=== PATIENT | male | born 1950 | race Caucasian/White ===

== ENCOUNTER → 2016-12-30 | Day surgery (SDC) | payer OTHER ==
[2016-12-28 13:47] VITALS: BMI 37.3
[~2016-12-30] MED LIST: IV FLUID CONTINUATION 450 ML IV ONE; LIDOCAINE 2% INJ 20 MG/ML SQ ONE; SODIUM CHLORIDE 0.9% 1,000 ML IV SCH; ceFAZolin 2 GM in SODIUM CHLORIDE 0.9% 100 ML IVPB ONE; fentaNYL (PF) 50 MCG/ML 2 ML AMP IV ONE
[2016-12-30 09:50] VITALS: PULSE 58; RESP 16; TEMP 98.3
[2016-12-30 10:10] LABS: Glucose,Whole Blood 126 mg/dL (75-99)
--- NOTE | 2016-12-30 14:33 | P.PCN ---
Preoperative Diagnosis: Twelve-lead ECG report Sinus because of normal RI narrow QRS T-wave inversions V3 to V6 QT interval is normal Tilt table test report Baseline blood pressure 134/76. His mercury Baseline 175 beats a minute patient was tilted upright at an angle of 70 per protocol was no significant changes heart her blood pressure no evidence for neurocardiogenic syncope Impression Normal heart rate and blood pressure response to upright tilting Condition: stable Disposition: same day
--- NOTE | 2016-12-30 14:59 | P.PCN ---
Preoperative Diagnosis: Patient underwent EP procedure under conscious sedation/moderate sedation, monitoring of the level of consciousness and physiologic parameters including but not limited to vital signs and oxygenation. Patient tolerated the procedure well without any acute complications. Start time: 1440 Stop time: 1452
--- NOTE | 2016-12-30 15:04 | P.PCN ---
Preoperative Diagnosis: Loop monitor implant Primary physicians: Dr. Darrell [facility] Field Machinist: Dr. Acosta Indication: A. fib Patient was brought to the EP lab in a fasting state. Written informed consent was obtained prior to the procedure. The left pectoral area was prepped and draped per protocol. Intravenous antibiotic was administered preoperatively. A subcutaneous Loop monitor was implanted successfully and the wound was closed per protocol. The device was programmed to detect significant reinier- arrhythmic and tachy-arrhythmic events, per protocol. Device and programming details: A. fib protocol programmed Disposition: same day
[2016-12-30 15:44] VITALS: BP 165/93
== END | disposition home or self-care (01) ==
LOC: CATHEP 08:47
PROVIDERS: ATTEND Internal Medicine Clinical Cardiac Electrophysiology
DX: I48.0 Paroxysmal atrial fibrillation (principal); I48.92 Unspecified atrial flutter; N18.3 Chronic kidney disease, stage 3 (moderate); E66.3 Overweight; E78.5 Hyperlipidemia, unspecified; I12.9 Hypertensive chronic kidney disease with stage 1 through stage 4 chronic kidney disease, or unspecified chronic kidney disease; G47.33 Obstructive sleep apnea (adult) (pediatric); E11.22 Type 2 diabetes mellitus with diabetic chronic kidney disease; I42.2 Other hypertrophic cardiomyopathy; I73.9 Peripheral vascular disease, unspecified; Z79.899 Other long term (current) drug therapy; Z79.4 Long term (current) use of insulin; Z79.01 Long term (current) use of anticoagulants
CPT/HCPCS: 33282; 93660; 99152; 93005; C1764; J2001; J0690; J3010

== ENCOUNTER 2017-08-08 13:00 | Day surgery (SDC) | payer MEDICARE, OTHER ==
[2017-08-08 07:20] LABS: Basophils # (A) 0.1 k/uL (0-0.2); Basophils % (A) 1 %; Eosinophils # (A) 0.3 k/uL (0-0.7); Eosinophils % (A) 3 %; HCT 43.7 % (39.0-53.0); HGB 15.6 gm/dL (13.0-17.5); Lymphocytes # (A) 4.2 k/uL (1.0-4.8); Lymphocytes % (A) 38 %; MCH 29.7 pg (25.0-35.0); MCHC 35.7 g/dL (31.0-37.0); MCV 83.2 fL (80.0-100.0); Mean Platelet Volume 9.8; Monocytes # (A) 0.6 k/uL (0-1.0); Monocytes % (A) 5 %; Neutrophils # (A) 5.6 k/uL (1.3-7.7); Neutrophils % (A) 50 %; Platelet Count 220 k/uL (150-450); RBC 5.25 m/uL (4.30-5.90); RDW 12.8 % (11.5-15.5)
[2017-08-08 09:32] LABS: Calcium 8.5 mg/dL (8.4-10.2); Potassium 3.8 mmol/L (3.5-5.1)
[2017-08-08 09:59] LABS: Glucose,Whole Blood 99 mg/dL (75-99)
[~2017-08-08 13:00] MED LIST changes: +GLYCOPYRROLATE 0.2 MG/ML 2 ML VIAL ONE; +HEPARIN SODIUM 1,000 UN/ML (10ML VL) IV ONE; +HEPARIN SODIUM 1,000 UN/ML (10ML VL) ONE; +HEPARIN SODIUM,PORCINE 10,000 UNIT/ML 1 ML VIAL ONE; +HEPARIN SODIUM,PORCINE/D5W PMX 25,000 UNIT in DEXTROSE/WATER 1 500ML.BAG IV ONE; +ISOPROTERENOL 250 MCG/1.25 ML SYR IV ONE; -IV FLUID CONTINUATION 450 ML IV ONE; +LIDOCAINE 1% INJ 10MG/ML (20 ML MDV) ONE; +MIDAZOLAM 2 MG/2 ML VIAL IV PRN; +MIDAZOLAM 2 MG/2 ML VIAL ONE; +NEOSTIGMINE 1 MG/ML 10 ML VIAL ONE; +PHENYLEPHRINE-0.9% NACL SYG 1 MG/10 ML SYRINGE ONE; +PROPOFOL 10 MG/ML 20 ML VIAL IV ONE; +PROTAMINE SULFATE 10 MG/ML 5 ML VIAL IV ONE; +ROCURONIUM BROMIDE 10 MG/ML 10 ML VIAL IV ONE; +SODIUM CHLORIDE 0.9% 1,000 ML IV ONE; +SUCCINYLCHOLINE CHLORIDE 100 MG/5 ML SYR IV ONE; -ceFAZolin 2 GM in SODIUM CHLORIDE 0.9% 100 ML IVPB ONE; +ePHEDrine SULFATE/0.9% NACL/PF 50 MG/5 ML SYRINGE IV ONE; -fentaNYL (PF) 50 MCG/ML 2 ML AMP IV ONE; +fentaNYL (PF) 50 MCG/ML 2 ML AMP IV PRN; +fentaNYL (PF) 50 MCG/ML 2 ML AMP ONE
[2017-08-08] MEDS ORDERED: HEPARIN SODIUM (1,000 UNIT/ML) 1,000 UNIT in SODIUM CHLORIDE 0.9% 1,000 ML IRRIGATION ONE (13:08)
[2017-08-08] MEDS ORDERED: IOPAMIDOL-370 100ML BTL INJ ONE (13:10)
[2017-08-08 14:02] LABS: Glucose,Whole Blood 98 mg/dL (75-99)
--- NOTE | 2017-08-08 14:24 | P.PCN ---
Preoperative Diagnosis: Diagnosis Paroxysmal symptomatic atrial fibrillation with RVR Chronic kidney disease Left ventricular hypertrophy Procedures performed (PVI - CRYO Ablation) Invasive hemodynamic monitoring while general anesthesia, right femoral arterial line for monitoring and sampling Comprehensive diagnostic EP study with attempted arrhythmia induction CS pacing and recording Drug infusion 3-D mapping of the left atrium Intracardiac echocardiography Pulmonary vein isolation with transseptal and comprehensive EPS, [id number] Procedure details Patient was brought to the EP lab in a fasting state. Written informed consent was obtained prior to the procedure. Procedure performed under general anesthesia After initial muscle relaxant use, muscle relaxants were not given thereafter in order to assess phrenic nerve during procedure Patient prepped and draped as per protocol Full cryo-set up with standard preparation of the cryoablation tools done Femoral Venous access obtained on the right and left groins Sheaths placed Diagnostic catheters for the high right atrium, phrenic nerve stimulation and pacing, His bundle, RV and coronary sinus placed Intracardiac echo catheter placed Long sheath placed in the right atrium Left and right transseptal catheterization performed under intracardiac echo guidance Intravenous heparin with aCT above 300 Later, catheter positioning and balloon positioning under intracardiac echo Baseline measurements Sinus cycle length 1318, VT interval 189, QRS 91 ms and QT 558 ms HV interval 58 ms Comprehensive diagnostic EP study with drug infusion Atrial pacing performed from the high right atrium and the coronary sinus Sinus node recovery times at 600 540 ms were 1578, 864 and 1269 ms. Corresponding corrected sinus node recovery times suggested sinus node entrance block AV node Wenckebach block 300 ms antegrade slow pathway conduction at 320 ms At the start of study and Isuprel was used spontaneous atrial fibrillation was induced on Isuprel without any pacing maneuvers. After about 30 minutes or so he spontaneously converted to sinus rhythm At the end of the procedure high dose Isuprel was once again used and this time atrial fibrillation could not be induced Transseptal catheterization performed RA pressure 13/1/7 LA pressure 29/2/14 Transseptal catheterization performed with standard sheath. The cryoablation sheath was then placed with an over the wire exchange without any acute complications. All 4 pulmonary veins were isolated in the following sequence: Left superior followed by left inferior followed by right superior followed by right inferior The cryo-ablation balloon was placed at the os of each vein 1.5 mL of IV dye was injected to confirm an occluded vein Goal during cryoablation was to achieve -30C in the first 30 seconds. If not the balloon was repositioned to obtain this result After completion of Cryoblation with durations from 180-240 seconds, entrance block was confirmed with the Attain circular catheter in a roving fashion around the antrum of the pulmonary veins Phrenic nerve pacing was performed from the SVC, right innominate vein area and diaphragm voltage was monitored as well as manually Parameter goals for each cryo freeze -30C by 30 seconds -40C by 60 seconds Mediated between minus 40-55 Thaw time greater than 10 seconds Balloon visualized by intracardiac echo to ensure that the proximal one third was within the left atrium/antrum Left superior pulmonary vein, very posteriorly oriented Single for minute cryoablation lesion, successful isolation Voltage mapping/3-D mapping at the end of the procedure showed complete isolation Left inferior pulmonary vein, very posteriorly oriented 2 cryoablation lesions, 3 minutes as well as 2 minutes Complete isolation demonstrated by voltage mapping/3-D mapping Right superior pulmonary vein, during phrenic nerve pacing 2 cryo lesions 3 minutes followed by 2 minutes RF application anterior mandi at the edge of the cryoablation, needed for complete isolation voltage map/3-D mapping demonstrated complete isolation Right inferior pulmonary vein, during phrenic nerve pacing 2 cryo lesions, 173 seconds followed by 04/18, and treat isolation demonstrated by voltage mapping/3-D mapping At the end of the procedure voltage map of the left atrium and the pulmonary veins demonstrated complete isolation except at 2 sites along the right superior vein, at the border zone of the cryo lesions. RF applications delivered at these sites for complete isolation Phrenic nerve stimulation was performed to confirm diaphragmatic stimulation the end of the procedure Cine fluoroscopy was performed at the very end of the procedure to confirm movement of both diaphragms with inspiration and expiration At the end of the procedure the patient was extubated Heparin was reversed Venous sheaths were removed and hemostasis assured Result During initial diagnostic EP study atrial fibrillation was very inducible with Isuprel infusion, without any pacing maneuvers Successful pulmonary vein isolation using cryo-ablation Complete entrance block in all 4 veins confirmed Voltage map/3-D mapping performed at the end of the procedure At the end of the procedure, high dose Isuprel did not result in induction of atrial fibrillation No evidence for phrenic nerve injury Left-sided esophagus that was deflected of a from the cryo balloon 30-35 mL of IV dye Plan Reduce metoprolol to 50 g twice daily Watch renal function and if GFR is significantly reduced and one may have to switch to Coumadin instead of xarelto Anesthesia: GETA Condition: stable Disposition: observation
[2017-08-08] MEDS ORDERED: ACETAMINOPHEN TAB 325 MG TAB PO PRN (15:04)
[2017-08-08] MEDS ORDERED: NALOXONE 0.4 MG/ML 1 ML VIAL IV PRN (15:04)
[2017-08-08] MEDS ORDERED: ALPRAZolam 0.5 MG TAB PO PRN (15:06)
[2017-08-08] MEDS ORDERED: EZETIMIBE 10 MG TAB PO PRN (15:06)
[2017-08-08] MEDS: SODIUM CHLORIDE 0.9% 1,000 ML IV SCH (15:15)
[2017-08-08 15:17] VITALS: BMI 38.5
[2017-08-08] MEDS: LACTATED RINGERS 1,000 ML IV SCH (15:31)
[2017-08-08] MEDS ORDERED: ERGOCALCIFEROL 50,000 UNIT CAP PO SCH (16:00)
[2017-08-08] MEDS ORDERED: ACETAMINOPHEN IV (For NPO) 1,000 MG in EMPTY BAG 1 BAG IVPB ONE (16:00)
[2017-08-08] MEDS: METOPROLOL TARTRATE 50 MG TAB PO SCH ×3 (16:22→23:09)
[2017-08-08] MEDS: GABAPENTIN 300 MG CAP PO SCH (16:22)
[2017-08-08] MEDS: HYDROcodone/APAP 5-325MG 1 EACH TAB PO PRN ×2 (16:27→23:17)
--- NOTE | 2017-08-08 16:44 | P.HPIM ---
History of Present Illness H&P Date: 08/08/17 Chief Complaint: Paroxysmal atrial fibrillation 67-year-old male with history of paroxysmal atrial fibrillation presented to the observation unit after he had ablation procedure for his chronic paroxysmal atrial fibrillation. Patient stated that over the last several months he has been having symptoms of increasing dizziness, shortness of breath, palpitations , difficulty with balance, nausea and occasional chest pain. No vomiting. He is currently a little weak and is feeling like there is something stuck in her throat and he is trying to get up. No recent illness, No fevers or chills. Currently patient is in sinus rhythm. No chest pain or shortness of breath. Review of Systems 12 point review of system performed, negative except HPI Past Medical History Past Medical History: Atrial Fibrillation, Diabetes Mellitus, GERD/Reflux, Musculoskeletal Disorder, Osteoarthritis (OA), Renal Disease, Sleep Apnea/CPAP/ BIPAP, Thyroid Disorder Additional Past Medical History / Comment(s): UNABLE TO USE CPAP. HYPOTHYROID, NOT TAKING RX. CHRONIC RENAL DISEASE STAGE 3, SEE H&P PER ARNAUD , HEPATITIS B AT AGE 22 History of Any Multi-Drug Resistant Organisms: None Reported Past Surgical History: Cholecystectomy, Heart Catheterization Additional Past Surgical History / Comment(s): LOOP RECORDER -12/2016 Past Anesthesia/Blood Transfusion Reactions: No Reported Reaction Past Psychological History: Anxiety, Depression Additional Psychological History / Comment(s): TAKES RX, DOESN'T WANT TO LIST RX INFO Smoking Status: Never smoker Past Alcohol Use History: Rare Past Drug Use History: Marijuana Additional Drug Use History / Comment(s): HAS NOT USED FOR AT LEAST A YEAR - Past Family History Father Family Medical History: Cancer Medications and Allergies Home Medications Medication Instructions Recorded Confirmed Type Calcitriol [Rocaltrol] 0.25 mcg PO DAILY 12/28/16 08/08/17 History Enalapril [Vasotec] 5 mg PO DAILY 12/28/16 08/05/17 History Ergocalciferol [Vitamin D2] 50,000 unit PO Q7D 12/28/16 08/05/17 History Ezetimibe [Zetia] 10 mg PO DAILY PRN 12/28/16 08/05/17 History Gabapentin [Neurontin] 300 mg PO BID 12/28/16 08/08/17 History Insulin Aspart [NovoLOG] 25 units SQ AC-TID 12/28/16 08/08/17 History Insulin Detemir [Levemir] 50 unit SQ BID 12/28/16 08/08/17 History Metoprolol Tartrate [Lopressor] 50 mg PO TID 12/28/16 08/08/17 History RX: Fenofibrate 54 mg PO PC-SUPPER 12/28/16 08/08/17 History Rivaroxaban [Xarelto] 15 mg PO HS 12/28/16 08/08/17 History Turmeric Root Extract [Turmeric] 1,000 mg PO DAILY 12/28/16 08/08/17 History Verapamil HCl [Verapamil ER] 180 mg PO PC-SUPPER 12/28/16 08/08/17 History ALPRAZolam [Xanax] 0.5 mg PO BID PRN 08/03/17 08/08/17 History Allergies Allergy/AdvReac Type Severity Reaction Status Date / Time No Known Allergies Allergy Verified 08/03/17 08:57 Physical Exam Vitals: Vital Signs Temp Pulse Pulse Pulse Resp BP BP 08/08/17 14:40 97.4 F L 68 18 146/72 08/08/17 14:24 65 16 131/69 08/08/17 14:09 67 16 130/75 08/08/17 13:54 68 16 138/84 08/08/17 13:39 97.5 F L 70 16 132/90 08/08/17 07:28 98.3 F 58 L 16 160/91 08/08/17 07:21 98.3 F 58 L 16 160/91 Pulse Ox 08/08/17 14:40 95 08/08/17 14:24 98 08/08/17 14:09 97 08/08/17 13:54 95 08/08/17 13:39 98 08/08/17 07:28 97 08/08/17 07:21 97 Intake and Output 08/08/17 08/08/17 08/08/17 06:59 14:59 22:59 Intake Total 2028 Output Total 290 Balance 1738 Intake: IV 2028 Output: Urine 290 Other: Weight 125.5 kg 125.5 kg Constitutional: No acute distress, conversant, pleasant Eyes:Anicteric sclerae, moist conjunctiva, no lid-lag, PERRLA, ENMT: Oropharynx clear, no erythema, exudates Neck: Supple, FROM, no masses, or JVD, No carotid bruits, No thyromegaly Lungs: Clear to auscultation, Clear to percussion, Normal respiratory effort, no accessory muscle use Cardiovascular: Heart regular in rate and rhythm, No murmurs, gallops, or rubs, No peripheral edema Abdominal: Soft, Nontender, no guarding, rebound or rigidity, Normoactive bowel sounds, No hepatomegaly, No splenomegaly, No palpable mass Skin: Normal temperature, tone, texture, turgor, no induration, No subcutaneous nodules, No rash, lesions, No ulcers Extremities: No digital cyanosis, No clubbing, Pedal pulses intact and symmetrical, Radial pulses intact and symmetrical, No calf tenderness Psychiatric: Alert and oriented to person, place and time, appropriate affect, intact judgement Neuro: Muscles Strength 5/5 in all 4 extremities, Sensation to light touch grossly present throughout, Cranial nerves II-XII grossly intact, no focal sensory deficits Results CBC & Chem 7: 08/08/17 07:08 08/08/17 09:10 Labs: Abnormal Lab Results - Last 24 Hours (Table) 08/08/17 08/08/17 Range/Units 07:08 09:10 WBC 11.0 H (3.8-10.6) k/uL Chloride 109 H (98-107) mmol/L Carbon Dioxide 21 L (22-30) mmol/L BUN 46 H (9-20) mg/dL Creatinine 2.66 H (0.66-1.25) mg/dL Thrombosis Risk Factor Assmnt - Choose All That Apply Any of the Below Risk Factors Present?: Yes Each Factor Represents 1 point: Obesity (BMI >25) Other Risk Factors: Yes Each Risk Factor Represents 2 Points: Age 61-74 years Thrombosis Risk Factor Assessment Total Risk Factor Score: 3 Thrombosis Risk Factor Assessment Level: Moderate Risk Assessment and Plan Plan: #1 Paroxysmal atrial fibrillation status post ablation Discussed with Dr. Boggs Patient be admitted to observation for further monitoring Telemetry Hold verapamil as patient's HR is currently in the 60s Continue metoprolol and anticoagulation therapy #2 Chronic kidney disease stage III: I asked the business unit leader to send for the patient's previous labs to look for baseline creatinine Patient received contrast during the procedure IV fluids Follow up creatinine in the morning #3 Diabetes type 2: Resume home insulin regimen #4 GERD/Reflux, Hypertension, Osteoarthritis (OA), hyperlipidemia: Stable Resume home medications
[2017-08-08 17:21] LABS: Glucose,Whole Blood 98 mg/dL (75-99)
[2017-08-08] MEDS ORDERED: VERAPAMIL SR 180 MG TABLET.ER PO SCH (18:30)
[2017-08-08] MEDS ORDERED: FENOFIBRATE 54 MG TAB PO SCH (18:30)
[2017-08-08] MEDS: INSULIN ASPART 100 UNIT/ML 1 ML 10 ML VIAL SQ SCH (20:11)
[2017-08-08] MEDS: INSULIN DETEMIR 100 UNIT/ML 10 ML VIAL SQ SCH (20:11)
[2017-08-08 20:15] LABS: Glucose,Whole Blood 213 mg/dL (75-99)
[2017-08-08] MEDS ORDERED: RIVAROXABAN 15 MG TAB PO SCH (21:00)
[2017-08-09] MEDS: SODIUM CHLORIDE 0.9% 1,000 ML IV SCH (03:28)
[2017-08-09 04:03] VITALS: RESP 16
[2017-08-09] MEDS: LACTATED RINGERS 1,000 ML IV SCH (05:02)
[2017-08-09 05:54] LABS: Basophils # (A) 0.1 k/uL (0-0.2); Basophils % (A) 1 %; Eosinophils # (A) 0.2 k/uL (0-0.7); Eosinophils % (A) 2 %; HCT 40.8 % (39.0-53.0); HGB 13.7 gm/dL (13.0-17.5); Lymphocytes # (A) 2.5 k/uL (1.0-4.8); Lymphocytes % (A) 25 %; MCH 29.5 pg (25.0-35.0); MCHC 33.6 g/dL (31.0-37.0); MCV 87.8 fL (80.0-100.0); Mean Platelet Volume 9.4; Monocytes # (A) 0.8 k/uL (0-1.0); Monocytes % (A) 8 %; Neutrophils # (A) 6.2 k/uL (1.3-7.7); Neutrophils % (A) 63 %; Platelet Count 166 k/uL (150-450); RBC 4.65 m/uL (4.30-5.90); WBC 9.8 k/uL (3.8-10.6)
[2017-08-09 06:01] LABS: Albumin 3.1 g/dL (3.5-5.0); Calcium 8.4 mg/dL (8.4-10.2); Magnesium 1.5 mg/dL (1.6-2.3); Phosphorus 3.1 mg/dL (2.5-4.5); Potassium 4.1 mmol/L (3.5-5.1); Total Bilirubin 1.3 mg/dL (0.2-1.3); Total Protein 5.6 g/dL (6.3-8.2)
[2017-08-09 06:31] LABS: Glucose,Whole Blood 129 mg/dL (75-99)
[2017-08-09] MEDS: METOPROLOL TARTRATE 50 MG TAB PO SCH (07:52)
[2017-08-09] MEDS: GABAPENTIN 300 MG CAP PO SCH (07:54)
[2017-08-09] MEDS: INSULIN DETEMIR 100 UNIT/ML 10 ML VIAL SQ SCH (07:54)
[2017-08-09] MEDS: INSULIN ASPART 100 UNIT/ML 1 ML 10 ML VIAL SQ SCH ×2 (08:19→13:00)
--- NOTE | 2017-08-09 08:38 | P.PN ---
Subjective Principal diagnosis: 67-year-old male patient with paroxysmal atrial fibrillation and underlying cardiomyopathy, hypertrophic Preserved LV systolic function He underwent successful cryoablation yesterday. This morning he is sitting up in bed eating breakfast. He has no chest discomfort, mild cough no dizziness lightheadedness or palpitations His groins of healed well and mildly tender but there is no swelling no hematoma no bruising Breath sounds are clear no rhonchi no crackles Heart sounds are normal normal S1 normal S2 abdomen soft nontender Extremities warm no edema Labs are reviewed BUN 39 creatinine has improved to 2.3 Suggest Patient may go home today from a cardiac standpoint and follow with Dr. Cedeno within a week or 2 Objective - Vital Signs Vital signs: Vital Signs Temp 98.8 F 08/09/17 07:55 Pulse 63 08/09/17 08:00 Resp 16 08/09/17 08:00 BP 112/57 08/09/17 07:55 Pulse Ox 97 08/09/17 07:55 Intake & Output 08/08/17 08/09/17 08/09/17 18:59 06:59 18:59 Intake Total 2028 Output Total 815 900 Balance 1214 -900 Weight 125.5 kg Intake: IV 2028 Output: Urine 815 900 Other: Voiding Method Indwelling Catheter Toilet Toilet # Voids 3 - Labs CBC & Chem 7: 08/09/17 05:32 08/09/17 05:32 Labs: Abnormal Lab Results - Last 24 Hours (Table) 08/08/17 08/08/17 08/09/17 Range/Units 09:10 20:08 05:32 Chloride 109 H (98-107) mmol/L Carbon Dioxide 21 L (22-30) mmol/L BUN 46 H 39 H (9-20) mg/dL Creatinine 2.66 H 2.30 H (0.66-1.25) mg/dL Glucose 163 H (74-99) mg/dL POC Glucose (mg/dL) 213 H (75-99) mg/dL Magnesium 1.5 L (1.6-2.3) mg/dL Total Protein 5.6 L (6.3-8.2) g/dL Albumin 3.1 L (3.5-5.0) g/dL 08/09/17 Range/Units 06:30 Chloride (98-107) mmol/L Carbon Dioxide (22-30) mmol/L BUN (9-20) mg/dL Creatinine (0.66-1.25) mg/dL Glucose (74-99) mg/dL POC Glucose (mg/dL) 129 H (75-99) mg/dL Magnesium (1.6-2.3) mg/dL Total Protein (6.3-8.2) g/dL Albumin (3.5-5.0) g/dL
[2017-08-09] MEDS ORDERED: EZETIMIBE 10 MG TAB PO SCH (09:00)
[2017-08-09] MEDS ORDERED: CALCITRIOL 0.25 MCG CAP PO SCH (09:00)
[2017-08-09] MEDS ORDERED: LISINOPRIL 10 MG TAB PO SCH (09:00)
[2017-08-09] MEDS ORDERED: TURMERIC ROOT EXTRACT 1000 MG PO SCH (09:00)
--- NOTE | 2017-08-09 11:44 | P.DS ---
Providers Expected date of discharge: 08/09/17 Attending physician: Julio Escoto MD Primary care physician: [facility] Course: 67-year-old male that was admitted to [facility] for ablation procedure performed by Dr Boggs. Patient tolerated procedure well. No issues overnight. GFR on the day of discharge is 29. Patient will be discharged home no changes in medications per cardiology. Patient instructed to follow-up with Dr. Anderson and 1-2 weeks. Patient Condition at Discharge: Stable Plan - Discharge Summary Discharge Rx Participant: No New Discharge Prescriptions: Continue Ezetimibe [Zetia] 10 mg PO DAILY PRN PRN Reason: DEPENDS ON DIET Enalapril [Vasotec] 5 mg PO DAILY Calcitriol [Rocaltrol] 0.25 mcg PO DAILY Insulin Aspart [NovoLOG] 25 units SQ AC-TID Insulin Detemir [Levemir] 50 unit SQ BID Rivaroxaban [Xarelto] 15 mg PO HS Fenofibrate 54 mg PO PC-SUPPER Verapamil HCl [Verapamil ER] 180 mg PO PC-SUPPER Metoprolol Tartrate [Lopressor] 50 mg PO TID Gabapentin [Neurontin] 300 mg PO BID Turmeric Root Extract [Turmeric] 1,000 mg PO DAILY Ergocalciferol [Vitamin D2 (DRISDOL)] 50,000 unit PO Q7D ALPRAZolam [Xanax] 0.5 mg PO BID PRN PRN Reason: ANXIETY AND RAPID HEART BEAT Discharge Medication List Calcitriol [Rocaltrol] 0.25 mcg PO DAILY 12/28/16 [History] Enalapril [Vasotec] 5 mg PO DAILY 12/28/16 [History] Ergocalciferol [Vitamin D2 (DRISDOL)] 50,000 unit PO Q7D 12/28/16 [History] Ezetimibe [Zetia] 10 mg PO DAILY PRN 12/28/16 [History] Fenofibrate 54 mg PO PC-SUPPER 12/28/16 [History] Gabapentin [Neurontin] 300 mg PO BID 12/28/16 [History] Insulin Aspart [NovoLOG] 25 units SQ AC-TID 12/28/16 [History] Insulin Detemir [Levemir] 50 unit SQ BID 12/28/16 [History] Metoprolol Tartrate [Lopressor] 50 mg PO TID 12/28/16 [History] Rivaroxaban [Xarelto] 15 mg PO HS 12/28/16 [History] Turmeric Root Extract [Turmeric] 1,000 mg PO DAILY 12/28/16 [History] Verapamil HCl [Verapamil ER] 180 mg PO PC-SUPPER 12/28/16 [History] ALPRAZolam [Xanax] 0.5 mg PO BID PRN 08/03/17 [History] Follow up Appointment(s)/Referral(s): Richi Anderson MD [STAFF PHYSICIAN] - 08/15/17 2:25 pm (Follow Dr. Cedeno within one to 2 weeks postprocedure)
[2017-08-09 11:45] VITALS: BP 167/81; PULSE 69; TEMP 98.1
[2017-08-09 12:22] LABS: Glucose,Whole Blood 152 mg/dL (75-99)
== END 2017-08-09 13:51 | disposition home or self-care (01) ==
LOC: CATHEP 13:00 → 3OBS 13:01 → CATHEP 08-09 13:51
PROVIDERS: ATTEND Internal Medicine
DX: I48.0 Paroxysmal atrial fibrillation (principal); Z79.01 Long term (current) use of anticoagulants; I51.7 Cardiomegaly; E11.22 Type 2 diabetes mellitus with diabetic chronic kidney disease; E11.51 Type 2 diabetes mellitus with diabetic peripheral angiopathy without gangrene; I12.9 Hypertensive chronic kidney disease with stage 1 through stage 4 chronic kidney disease, or unspecified chronic kidney disease; N18.3 Chronic kidney disease, stage 3 (moderate); Z79.4 Long term (current) use of insulin; E78.5 Hyperlipidemia, unspecified; E03.9 Hypothyroidism, unspecified; K21.9 Gastro-esophageal reflux disease without esophagitis; M19.90 Unspecified osteoarthritis, unspecified site; G47.30 Sleep apnea, unspecified; F41.9 Anxiety disorder, unspecified; F32.9 Major depressive disorder, single episode, unspecified; Z79.890 Hormone replacement therapy; Z79.899 Other long term (current) drug therapy
CPT/HCPCS: 93623; 93662; 93613; 93656; 80053; 80048; 83735; 84100; 85025 ×2; C1769 ×5; C1894 ×4; C1730 ×3; C1759; C1893; C1733; C1766; C1732; J2001 ×2; J2250; J2720; J1644 ×3; J2710; J3010; J2370; J0330; J2704; Q9967; 93609

== ENCOUNTER 2017-08-16 12:31 | Inpatient (IN) | payer MEDICARE, OTHER ==
[2017-08-16 13:14] LABS: Basophils # (A) 0.1 k/uL (0-0.2); Basophils % (A) 1 %; Eosinophils # (A) 0.2 k/uL (0-0.7); Eosinophils % (A) 2 %; HCT 48.2 % (39.0-53.0); HGB 16.3 gm/dL (13.0-17.5); Lymphocytes # (A) 2.5 k/uL (1.0-4.8); Lymphocytes % (A) 25 %; MCH 29.1 pg (25.0-35.0); MCHC 33.7 g/dL (31.0-37.0); MCV 86.4 fL (80.0-100.0); Mean Platelet Volume 10.2; Monocytes # (A) 0.9 k/uL (0-1.0); Monocytes % (A) 9 %; Neutrophils # (A) 6.3 k/uL (1.3-7.7); Neutrophils % (A) 62 %; Platelet Count 240 k/uL (150-450); RBC 5.58 m/uL (4.30-5.90); WBC 10.1 k/uL (3.8-10.6)
[2017-08-16] MEDS ORDERED: SODIUM CHLORIDE 0.9% 500 ML IV ONE ×2 (13:16→14:13)
[2017-08-16 13:22] LABS: INR 1.3 (<1.2); Partial Thromboplastin Time 26.6 sec (22.0-30.0); Prothrombin Time 12.1 sec (9.0-12.0)
[2017-08-16 13:23] LABS: Albumin 4.2 g/dL (3.5-5.0); Magnesium 1.2 mg/dL (1.6-2.3); Potassium 5.1 mmol/L (3.5-5.1); Total Bilirubin 0.9 mg/dL (0.2-1.3); Total Protein 7.1 g/dL (6.3-8.2)
[2017-08-16] MEDS: SODIUM CHLORIDE 0.9% 1,000 ML IV SCH (13:27)
--- NOTE | 2017-08-16 13:53 | XR ---
EXAMINATION TYPE: XR chest 1V DATE OF EXAM: 08/16/2017 COMPARISON: NONE HISTORY: 67-year-old male with pain TECHNIQUE: Single frontal view of the chest is obtained. FINDINGS: Loop recorder projects over the left chest. Heart normal size. Possible variant anatomy with right si ded aortic arch. Nonemergent follow-up CT can further characterize any vascular anomalies. Mild diffu se interstitial prominence of the chronic appearance. No consolidation or pleural effusion. IMPRESSION: 1. 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 Nonemergent follow-up contrast enhanced CT can characterize any potential congenital anomaly. It can also exclude the less likely possibility of right paratracheal l ymphadenopathy/mass. 2. There are chronic appearing changes without acute process seen.
[2017-08-16 13:57] LABS: Creatine Kinase MB 4.6 ng/mL (0.0-2.4); Troponin I 0.101 ng/mL (0.000-0.034)
[2017-08-16] MEDS ORDERED: METOPROLOL TARTRATE 5 MG/5 ML VIAL IVP PRN (14:21)
--- NOTE | 2017-08-16 14:25 | ED ---
Arrhythmia/Palpitations HPI - General Chief Complaint: Arrhythmia/Palpitations Stated Complaint: irregular heart rate Time Seen by Provider: 08/16/17 13:05 Source: patient Mode of arrival: wheelchair Limitations: no limitations - History of Present Illness Initial Comments: CT 7 years old male comes In with the tachycardia he said his heart has been racing any on his heart rate was 146 menses he feels short winded has a mild chest pain more like a pressure he denies any worsening of the chest pain with a deep breaths denies any fever no chills. Denies any headache no neck stiffness shortness of breath mild chest pain no pleuritic chest pain no abdominal pain no frequency urgency dysuria no symptoms of TIA or CVA - Related Data Home Medications Medication Instructions Recorded Confirmed Calcitriol [Rocaltrol] 0.25 mcg PO DAILY 12/28/16 08/16/17 Enalapril [Vasotec] 5 mg PO DAILY 12/28/16 08/16/17 Ergocalciferol [Vitamin D2 50,000 unit PO Q7D 12/28/16 08/16/17 (DRISDOL)] Ezetimibe [Zetia] 10 mg PO DAILY PRN 12/28/16 08/16/17 Fenofibrate 54 mg PO DAILY@1200 12/28/16 08/16/17 Gabapentin [Neurontin] 300 mg PO BID 12/28/16 08/16/17 Insulin Aspart [NovoLOG] 25 units SQ AC-TID 12/28/16 08/16/17 Insulin Detemir [Levemir] See Protocol SQ BID 12/28/16 08/16/17 Metoprolol Tartrate [Lopressor] 50 mg PO BID 12/28/16 08/16/17 Rivaroxaban [Xarelto] 15 mg PO HS 12/28/16 08/16/17 Turmeric Root Extract [Turmeric] 1,000 mg PO DAILY 12/28/16 08/16/17 Verapamil HCl [Verapamil ER] 180 mg PO PC-SUPPER 12/28/16 08/16/17 ALPRAZolam [Xanax] 0.5 mg PO BID PRN 08/03/17 08/16/17 Allergies Allergy/AdvReac Type Severity Reaction Status Date / Time No Known Allergies Allergy Verified 08/16/17 13:26 Review of Systems ROS Statement: Those systems with pertinent positive or pertinent negative responses have been documented in the HPI. ROS Other: All systems not noted in ROS Statement are negative. Past Medical History Past Medical History: Atrial Fibrillation, Diabetes Mellitus, GERD/Reflux, Musculoskeletal Disorder, Osteoarthritis (OA), Renal Disease, Sleep Apnea/CPAP/ BIPAP, Thyroid Disorder Additional Past Medical History / Comment(s): UNABLE TO USE CPAP. HYPOTHYROID, NOT TAKING RX. CHRONIC RENAL DISEASE STAGE 3, SEE H&P PER ARNAUD , HEPATITIS B AT AGE 22 History of Any Multi-Drug Resistant Organisms: None Reported Past Surgical History: Cholecystectomy, Heart Catheterization Additional Past Surgical History / Comment(s): LOOP RECORDER -12/2016 cardiac ablation Past Anesthesia/Blood Transfusion Reactions: No Reported Reaction Past Psychological History: Anxiety, Depression Smoking Status: Never smoker Past Alcohol Use History: Rare Past Drug Use History: Marijuana - Past Family History Father Family Medical History: Cancer General Exam - General Exam Comments Initial Comments: General: The patient is awake and alert, in no distress, and does not appear acutely ill. Skin: Skin is warm and dry and no rashes or lesions are noted. Eye: Pupils are equal, round and reactive to light, extra-ocular movements are intact; there is normal conjunctiva bilaterally. Ears, nose, mouth and throat: There are moist mucous membranes and no oral lesions. Neck: The neck is supple, there is no tenderness or JVD. Cardiovascular: There is a regular rate and rhythm. It is quite tachycardic heart rate is around 146 Respiratory: To auscultation bilateral, no wheezing no rhonchi no distress respiratory ramirez noticed Gastrointestinal: Soft, non-distended, non-tender abdomen without masses or organomegaly noted. There is no rebound or guarding present. Bowel sounds are unremarkable. Back: There is no tenderness to palpation in the midline. There is no obvious deformity. Musculoskeletal: Normal ROM, no tenderness, There is no pedal edema. There is no calf tenderness or swelling. No cords were appreciated. Neurological: CN II-XII intact, Cranial nerves III through XII are intact. There are no obvious motor or sensory deficits. Coordination appears grossly intact. Speech is normal. Psychiatric: Cooperative, appropriate mood & affect, normal judgment. Limitations: no limitations Course Vital Signs 08/16/17 08/16/17 08/16/17 12:33 13:28 13:30 Temperature 97.3 F L Pulse Rate 141 H 142 H Pulse Rate [ 140 H Oil Field Technician ] Respiratory 18 20 Rate Blood Pressure 142/90 138/84 O2 Sat by Pulse 98 97 Oximetry 08/16/17 14:23 Temperature 97.2 F L Pulse Rate 137 H Pulse Rate [ Oil Field Technician ] Respiratory 20 Rate Blood Pressure 134/92 O2 Sat by Pulse 97 Oximetry EKG Findings - EKG Comments: EKG Findings:: EKG is sinus tachycardia ventricular rate is 146 NE interval is 152 QRS duration is 1 of 4 QT/QTc is 272/423 and aVF this EKG is leads I could see P waves and other leads I total CPK also noticed some T-wave inversions in lead 3 and lead aVL no ST elevation noticed in any of the leads Medical Decision Making - Lab Data Result diagrams: 08/16/17 12:53 08/16/17 12:53 Lab Results 08/16/17 08/16/17 08/16/17 Range/Units 12:53 12:53 12:53 WBC 10.1 (3.8-10.6) k/uL RBC 5.58 (4.30-5.90) m/uL Hgb 16.3 (13.0-17.5) gm/dL Hct 48.2 (39.0-53.0) % MCV 86.4 (80.0-100.0) fL MCH 29.1 (25.0-35.0) pg MCHC 33.7 (31.0-37.0) g/dL RDW 13.0 (11.5-15.5) % Plt Count 240 (150-450) k/uL Neutrophils % 62 % Lymphocytes % 25 % Monocytes % 9 % Eosinophils % 2 % Basophils % 1 % Neutrophils # 6.3 (1.3-7.7) k/uL Lymphocytes # 2.5 (1.0-4.8) k/uL Monocytes # 0.9 (0-1.0) k/uL Eosinophils # 0.2 (0-0.7) k/uL Basophils # 0.1 (0-0.2) k/uL PT (9.0-12.0) sec INR (<1.2) APTT (22.0-30.0) sec Sodium 140 (137-145) mmol/L Potassium 5.1 (3.5-5.1) mmol/L Chloride 105 (98-107) mmol/L Carbon Dioxide 19 L (22-30) mmol/L Anion Gap 16 mmol/L BUN 41 H (9-20) mg/dL Creatinine 2.48 H (0.66-1.25) mg/dL Est GFR (CKD-EPI)AfAm 30 (>60 ml/min/1.73 sqM) Est GFR (CKD-EPI)NonAf 26 (>60 ml/min/1.73 sqM) Glucose 179 H (74-99) mg/dL Calcium 10.0 (8.4-10.2) mg/dL Magnesium 1.2 L (1.6-2.3) mg/dL Total Bilirubin 0.9 (0.2-1.3) mg/dL AST 21 (17-59) U/L ALT 22 (21-72) U/L Alkaline Phosphatase 67 (38-126) U/L Total Creatine Kinase 135 (55-170) U/L CK-MB (CK-2) 4.6 H* (0.0-2.4) ng/mL CK-MB (CK-2) Rel Index 3.4 Troponin I 0.101 H* (0.000-0.034) ng/mL Total Protein 7.1 (6.3-8.2) g/dL Albumin 4.2 (3.5-5.0) g/dL TSH 4.770 H (0.465-4.680) mIU/L 08/16/17 Range/Units 12:53 WBC (3.8-10.6) k/uL RBC (4.30-5.90) m/uL Hgb (13.0-17.5) gm/dL Hct (39.0-53.0) % MCV (80.0-100.0) fL MCH (25.0-35.0) pg MCHC (31.0-37.0) g/dL RDW (11.5-15.5) % Plt Count (150-450) k/uL Neutrophils % % Lymphocytes % % Monocytes % % Eosinophils % % Basophils % % Neutrophils # (1.3-7.7) k/uL Lymphocytes # (1.0-4.8) k/uL Monocytes # (0-1.0) k/uL Eosinophils # (0-0.7) k/uL Basophils # (0-0.2) k/uL PT 12.1 H (9.0-12.0) sec INR 1.3 H (<1.2) APTT 26.6 (22.0-30.0) sec Sodium (137-145) mmol/L Potassium (3.5-5.1) mmol/L Chloride (98-107) mmol/L Carbon Dioxide (22-30) mmol/L Anion Gap mmol/L BUN (9-20) mg/dL Creatinine (0.66-1.25) mg/dL Est GFR (CKD-EPI)AfAm (>60 ml/min/1.73 sqM) Est GFR (CKD-EPI)NonAf (>60 ml/min/1.73 sqM) Glucose (74-99) mg/dL Calcium (8.4-10.2) mg/dL Magnesium (1.6-2.3) mg/dL Total Bilirubin (0.2-1.3) mg/dL AST (17-59) U/L ALT (21-72) U/L Alkaline Phosphatase (38-126) U/L Total Creatine Kinase (55-170) U/L CK-MB (CK-2) (0.0-2.4) ng/mL CK-MB (CK-2) Rel Index Troponin I (0.000-0.034) ng/mL Total Protein (6.3-8.2) g/dL Albumin (3.5-5.0) g/dL TSH (0.465-4.680) mIU/L Critical Care Time Total Critical Care Time: 45 Critical Care Time: Family history of atrial fibrillation EST is on his overall toe he said he been now quite compliant with his medications he is also on a beta blockers and he said he has been very compliant with her heart rate of 146 we will admit him under Dr. Wan service will consult cardiology his troponin is elevated considering is in his overall toe he is not a candidate for heparinization I have paged cardiology on a touch base with him considering his fast heart rate and he also had a diarrhea and given a bolus of fluid and then a milligram IV metoprolol 2.5 mg as needed to bring his heart rate around 80. I decided that, he is aware of the admission and I spoke with the Dr. Ferguson cost reduction engineer workers compensation claims specialist he was informed about term patient's troponin and the heart rate and my plan of fluids and beta blockers Disposition Referrals: Kimberlee Harding MD [Primary Care Provider] - 1-2 days
[2017-08-16] MEDS ORDERED: NITROGLYCERIN SL TABS 0.4 MG TAB SUBLINGUAL PRN (15:12)
[2017-08-16] MEDS ORDERED: ALPRAZolam 0.5 MG TAB PO PRN (15:17)
[2017-08-16] MEDS ORDERED: EZETIMIBE 10 MG TAB PO PRN (15:17)
[2017-08-16] MEDS: METOPROLOL TARTRATE 5 MG/5 ML VIAL IVP PRN ×2 (15:22→16:18)
[2017-08-16] MEDS ORDERED: HYDROcodone/APAP 5-325MG 1 EACH TAB PO PRN (15:28)
[2017-08-16] MEDS: MAGNESIUM SULFATE-D5W PMX 1 GM in DEXTROSE/WATER 1 100ML.BAG IVPB SCH ×3 (17:12→20:47)
[2017-08-16] MEDS ORDERED: DILTIAZEM 50 MG in SODIUM CHLORIDE 0.9% 40 ML IV ONE ×2 (17:54→17:57)
--- NOTE | 2017-08-16 17:57 | P.CRDCN ---
History of Present Illness Consult date: 08/16/17 History of present illness: This is a 67-year-old gentleman with history of hypertension, diabetes and hypercholesterolemia and also chronic renal failure and had an ablation done by Dr. Boggs recently for paroxysmal atrial fibrillation. Patient came today to the emergency room with complaints of palpitations and shortness of breath. Patient is found to be in atrial flutter with 2 to one conduction. Denied any chest pain. On going to start him on IV Cardizem 10 mg bolus followed by 10 mg drip. We'll continue with beta blockers. If necessary will start him on amiodarone. If patient doesn't convert to sinus rhythm, we'll may do a cardioversion tomorrow. Review of Systems REVIEW OF SYSTEMS: CONSTITUTIONAL:. Patient is doing well. No complaints of fever or chills EYES: Denies diplopia, blurring of vision EARS, NOSE, MOUTH, THROAT: Denies headaches, denies sore throat. CARDIOVASCULAR: Palpitations RESPIRATORY: Denies shortness of breath, denies cough. GASTROINTESTINAL: Denies change in appetite, denies abdominal pain, denies diarrhea GENITOURINARY: Denies hematuria, denies infections. MUSKULOSKELETAL: Denies pain, denies swelling. Denies any cramps or claudication INTEGUMENTARY: Denies rash, denies eczema. NEUROLOGICAL: Denies focal weakness, or visual disturbance. Denies any dizziness or syncope PSYCHIATRIC: Denies anxiety, denies depression. HEMATOLOGIC/LYMPHATIC: Denies any bleeding, denies enlarged lymph nodes. Past Medical History Past Medical History: Atrial Fibrillation, Diabetes Mellitus, GERD/Reflux, Musculoskeletal Disorder, Osteoarthritis (OA), Renal Disease, Sleep Apnea/CPAP/ BIPAP, Thyroid Disorder Additional Past Medical History / Comment(s): UNABLE TO USE CPAP. HYPOTHYROID, NOT TAKING RX. CHRONIC RENAL DISEASE STAGE 3, SEE H&P PER ARNAUD , HEPATITIS B AT AGE 22 History of Any Multi-Drug Resistant Organisms: None Reported Past Surgical History: Cholecystectomy, Heart Catheterization Additional Past Surgical History / Comment(s): LOOP RECORDER -12/2016 cardiac ablation Past Anesthesia/Blood Transfusion Reactions: No Reported Reaction Past Psychological History: Anxiety, Depression Smoking Status: Never smoker Past Alcohol Use History: Rare Past Drug Use History: Marijuana - Past Family History Father Family Medical History: Cancer Medications and Allergies Home Medications Medication Instructions Recorded Confirmed Type Calcitriol [Rocaltrol] 0.25 mcg PO DAILY 12/28/16 08/16/17 History Enalapril [Vasotec] 5 mg PO DAILY 12/28/16 08/16/17 History Ergocalciferol [Vitamin D2 50,000 unit PO Q7D 12/28/16 08/16/17 History (DRISDOL)] Ezetimibe [Zetia] 10 mg PO DAILY PRN 12/28/16 08/16/17 History Fenofibrate 54 mg PO DAILY@1200 12/28/16 08/16/17 History Gabapentin [Neurontin] 300 mg PO BID 12/28/16 08/16/17 History Insulin Aspart [NovoLOG] 25 units SQ AC-TID 12/28/16 08/16/17 History Insulin Detemir [Levemir] See Protocol SQ BID 12/28/16 08/16/17 History Metoprolol Tartrate [Lopressor] 50 mg PO BID 12/28/16 08/16/17 History Rivaroxaban [Xarelto] 15 mg PO HS 12/28/16 08/16/17 History Turmeric Root Extract [Turmeric] 1,000 mg PO DAILY 12/28/16 08/16/17 History Verapamil HCl [Verapamil ER] 180 mg PO PC-SUPPER 12/28/16 08/16/17 History ALPRAZolam [Xanax] 0.5 mg PO BID PRN 08/03/17 08/16/17 History Allergies Allergy/AdvReac Type Severity Reaction Status Date / Time No Known Allergies Allergy Verified 08/16/17 13:26 Physical Exam Vitals: Vital Signs Temp Pulse Pulse Resp BP Pulse Ox 08/16/17 16:16 132 H 18 128/86 99 08/16/17 15:21 132 H 18 124/86 97 08/16/17 14:23 97.2 F L 137 H 20 134/92 97 08/16/17 13:30 140 H 08/16/17 13:28 142 H 20 138/84 97 08/16/17 12:33 97.3 F L 141 H 18 142/90 98 Intake and Output 08/16/17 08/16/17 08/16/17 06:59 14:59 22:59 Other: Weight 125.191 kg GENERAL EXAM: Patient is alert and oriented and doesn't appear to be in any acute distress HEENT: Normocephalic. Normal reaction of pupils, equal size, normal range of extraocular motion. No erythema or exudates in the throat. NECK: No masses, no nuchal rigidity. CHEST: No chest wall deformity. LUNGS: Equal air entry with no crackles or wheeze. HEART: Tachycardic. SKIN: No rashes CENTRAL NERVOUS SYSTEM: No focal deficits. EXTREMITIES: No cyanosis, clubbing or edema. Results 08/16/17 12:53 08/16/17 12:53 Cardiac Enzymes 08/16/17 08/16/17 Range/Units 12:53 12:53 AST 21 (17-59) U/L CK-MB (CK-2) 4.6 H* (0.0-2.4) ng/mL Troponin I 0.101 H* (0.000-0.034) ng/mL Coagulation 08/16/17 Range/Units 12:53 PT 12.1 H (9.0-12.0) sec APTT 26.6 (22.0-30.0) sec CBC 08/16/17 Range/Units 12:53 WBC 10.1 (3.8-10.6) k/uL RBC 5.58 (4.30-5.90) m/uL Hgb 16.3 (13.0-17.5) gm/dL Hct 48.2 (39.0-53.0) % Plt Count 240 (150-450) k/uL Comprehensive Metabolic Panel 08/16/17 Range/Units 12:53 Sodium 140 (137-145) mmol/L Potassium 5.1 (3.5-5.1) mmol/L Chloride 105 (98-107) mmol/L Carbon Dioxide 19 L (22-30) mmol/L BUN 41 H (9-20) mg/dL Creatinine 2.48 H (0.66-1.25) mg/dL Glucose 179 H (74-99) mg/dL Calcium 10.0 (8.4-10.2) mg/dL AST 21 (17-59) U/L ALT 22 (21-72) U/L Alkaline Phosphatase 67 (38-126) U/L Total Protein 7.1 (6.3-8.2) g/dL Albumin 4.2 (3.5-5.0) g/dL Current Medications Generic Name Dose Route Start Last Admin Trade Name Freq PRN Reason Stop Dose Admin Hydrocodone Bitart/Acetaminophen 1 each 08/16/17 15:28 08/16/17 15:48 [place] 5-325 PO 1 each Q6H PRN Administration Pain/Discomfort Alprazolam 0.5 mg 08/16/17 15:17 Xanax PO BID PRN ANXIETY AND RAPID HEART BEAT Aspirin 325 mg 08/17/17 09:00 Aspirin PO DAILY [facility] Calcitriol 0.25 mcg 08/17/17 09:00 Rocaltrol PO DAILY [facility] Ezetimibe 10 mg 08/16/17 15:17 Zetia PO DAILY PRN DEPENDS ON DIET Ergocalciferol 50,000 unit 08/16/17 15:30 Vitamin D2 PO Q7D [facility] Fenofibrate 54 mg 08/17/17 12:00 Lofibra PO DAILY@1200 [facility] Gabapentin 300 mg 08/16/17 21:00 Neurontin PO BID [facility] Sodium Chloride 1,000 mls @ 100 mls/hr 08/16/17 13:30 08/16/17 13:27 Saline 0.9% IV 100 mls/hr .Q10H [facility] Administration Magnesium Sulfate/Dextrose 1 100 mls @ 100 mls/hr 08/16/17 16:45 08/16/17 17: 12 gm/ IV Solution IVPB 08/16/17 19:44 100 mls/hr Q1H [facility] Administration Metoprolol Tartrate 2.5 mg 08/16/17 15:05 08/16/17 16:18 Lopressor IVP 2.5 mg Q15M PRN Administration Heart Rate - HIGH Metoprolol Tartrate 50 mg 08/16/17 21:00 Lopressor PO BID [facility] Nitroglycerin 0.4 mg 08/16/17 15:12 Nitrostat SUBLINGUAL Q5M PRN Chest Pain Non-Formulary Medication 25 units 08/16/17 17:30 Insulin Aspart [Novolog] SQ AC-TID [facility] Non-Formulary Medication 180 mg 08/16/17 18:30 Verapamil Hcl [Verapamil Er] PO PC-SUPPER [facility] Rivaroxaban 15 mg 08/16/17 21:00 Xarelto PO HS [facility] Intake and Output 08/16/17 08/16/17 08/16/17 06:59 14:59 22:59 Other: Weight 125.191 kg Patient Weight 08/17/17 06:59 Weight 125.191 kg 08/16/17 12:53 08/16/17 12:53 EKG Interpretations (text) Atrial flutter with 2 to one conduction Assessment and Plan (1) Atrial flutter Current Visit: Yes Status: Acute Code(s): I48.92 - UNSPECIFIED ATRIAL FLUTTER SNOMED Code(s): 7472313 (2) Paroxysmal atrial fibrillation Current Visit: Yes Status: Acute Code(s): I48.0 - PAROXYSMAL ATRIAL FIBRILLATION SNOMED Code(s): 155088414 (3) Hypertension, essential Current Visit: Yes Status: Acute Code(s): I10 - ESSENTIAL (PRIMARY) HYPERTENSION SNOMED Code(s): 57051692 (4) Hyperlipidemia Current Visit: Yes Status: Acute Code(s): E78.5 - HYPERLIPIDEMIA, UNSPECIFIED SNOMED Code(s): 05144356 (5) Chronic renal failure Current Visit: Yes Status: Acute Code(s): N18.9 - CHRONIC KIDNEY DISEASE, UNSPECIFIED SNOMED Code(s): 42801854 Plan: I'll start him on IV Cardizem. Continue with anticoagulation. He patient doesn 't convert to sinus rhythm, may consider cardioversion tomorrow.
[2017-08-16] MEDS: INSULIN ASPART 100 UNIT/ML 1 ML 10 ML VIAL SQ SCH (18:15)
--- NOTE | 2017-08-16 18:21 | P.HPIM ---
History of Present Illness 67-year-old the gentleman with known history of atrial fibrillation underwent dilation 8 days ago came back because of palpitations patient is found to be in sinus tachycardia still remains in atrial flutter patient was started back on verapamil and metoprolol patient was given IV metoprolol and cardiology valid the patient today appears like they're starting him on Cardizem and patient is already on anticoagulation with Xarelto. Patient denied any fever chills cough runny nose. Patient potassium is 5.1 because of which I'm holding off on JUAN R inhibitor at this point of time patient does have diabetic nephropathy stage IV chronic kidney disease creatinine is at his baseline. Patient denied any chest pain Review of Systems REVIEW OF SYSTEMS: CONSTITUTIONAL: No fever, no malaise, no fatigue. HEENT: No recent visual problems or hearing problems. Denied any sore throat. CARDIOVASCULAR: No chest pain, orthopnea, PND, no syncope. PULMONARY: No shortness of breath, no cough, no hemoptysis. GASTROINTESTINAL: No diarrhea, no nausea, no vomiting, no abdominal pain. Normoactive bowel sounds. NEUROLOGICAL: No headaches, no weakness, no numbness. HEMATOLOGICAL: Denies any bleeding or petechiae. GENITOURINARY: Denies any burning micturition, frequency, or urgency. MUSCULOSKELETAL/RHEUMATOLOGICAL: Denies any joint pain, swelling, or any muscle pain. ENDOCRINE: Denies any polyuria or polydipsia. The rest of the 14-point review of systems is negative. Past Medical History Past Medical History: Atrial Fibrillation, Diabetes Mellitus, GERD/Reflux, Musculoskeletal Disorder, Osteoarthritis (OA), Renal Disease, Sleep Apnea/CPAP/ BIPAP, Thyroid Disorder Additional Past Medical History / Comment(s): UNABLE TO USE CPAP. HYPOTHYROID, NOT TAKING RX. CHRONIC RENAL DISEASE STAGE 3, SEE H&P PER ARNAUD , HEPATITIS B AT AGE 22 History of Any Multi-Drug Resistant Organisms: None Reported Past Surgical History: Cholecystectomy, Heart Catheterization Additional Past Surgical History / Comment(s): LOOP RECORDER -12/2016 cardiac ablation Past Anesthesia/Blood Transfusion Reactions: No Reported Reaction Past Psychological History: Anxiety, Depression Smoking Status: Never smoker Past Alcohol Use History: Rare Past Drug Use History: Marijuana - Past Family History Father Family Medical History: Cancer Medications and Allergies Home Medications Medication Instructions Recorded Confirmed Type Calcitriol [Rocaltrol] 0.25 mcg PO DAILY 12/28/16 08/16/17 History Enalapril [Vasotec] 5 mg PO DAILY 12/28/16 08/16/17 History Ergocalciferol [Vitamin D2 50,000 unit PO Q7D 12/28/16 08/16/17 History (DRISDOL)] Ezetimibe [Zetia] 10 mg PO DAILY PRN 12/28/16 08/16/17 History Fenofibrate 54 mg PO DAILY@1200 12/28/16 08/16/17 History Gabapentin [Neurontin] 300 mg PO BID 12/28/16 08/16/17 History Insulin Aspart [NovoLOG] 25 units SQ AC-TID 12/28/16 08/16/17 History Insulin Detemir [Levemir] See Protocol SQ BID 12/28/16 08/16/17 History Metoprolol Tartrate [Lopressor] 50 mg PO BID 12/28/16 08/16/17 History Rivaroxaban [Xarelto] 15 mg PO HS 12/28/16 08/16/17 History Turmeric Root Extract [Turmeric] 1,000 mg PO DAILY 12/28/16 08/16/17 History Verapamil HCl [Verapamil ER] 180 mg PO PC-SUPPER 12/28/16 08/16/17 History ALPRAZolam [Xanax] 0.5 mg PO BID PRN 08/03/17 08/16/17 History Allergies Allergy/AdvReac Type Severity Reaction Status Date / Time No Known Allergies Allergy Verified 08/16/17 13:26 Physical Exam Vitals: Vital Signs Temp Pulse Pulse Resp BP Pulse Ox 08/16/17 16:16 132 H 18 128/86 99 08/16/17 15:21 132 H 18 124/86 97 08/16/17 14:23 97.2 F L 137 H 20 134/92 97 08/16/17 13:30 140 H 08/16/17 13:28 142 H 20 138/84 97 08/16/17 12:33 97.3 F L 141 H 18 142/90 98 Intake and Output 08/16/17 08/16/17 08/16/17 06:59 14:59 22:59 Other: Weight 125.191 kg PHYSICAL EXAMINATION: GENERAL: The patient is alert and oriented x3, not in any acute distress. Well developed, well nourished. HEENT: Pupils are round and equally reacting to light. EOMI. No scleral icterus. No conjunctival pallor. Normocephalic, atraumatic. No pharyngeal erythema. No thyromegaly. CARDIOVASCULAR: S1 and S2 present. No murmurs, rubs, or gallops. Tachycardic PULMONARY: Chest is clear to auscultation, no wheezing or crackles. ABDOMEN: Soft, nontender, nondistended, normoactive bowel sounds. No palpable organomegaly. MUSCULOSKELETAL: No joint swelling or deformity. EXTREMITIES: No cyanosis, clubbing, or pedal edema. NEUROLOGICAL: Gross neurological examination did not reveal any focal deficits. SKIN: No rashes. Results CBC & Chem 7: 08/16/17 12:53 08/16/17 12:53 Labs: Abnormal Lab Results - Last 24 Hours (Table) 08/16/17 08/16/17 08/16/17 Range/Units 12:53 12:53 12:53 PT 12.1 H (9.0-12.0) sec INR 1.3 H (<1.2) Carbon Dioxide 19 L (22-30) mmol/L BUN 41 H (9-20) mg/dL Creatinine 2.48 H (0.66-1.25) mg/dL Glucose 179 H (74-99) mg/dL Magnesium 1.2 L (1.6-2.3) mg/dL CK-MB (CK-2) 4.6 H* (0.0-2.4) ng/mL Troponin I 0.101 H* (0.000-0.034) ng/mL TSH 4.770 H (0.465-4.680) mIU/L Assessment and Plan Plan: -Atrial flutter/fibrillation: Patient has abdomen: Rate patient will be resumed on metoprolol and verapamil and patient will be started on Cardizem continue with anti-coagulation -Hypertension hold off JUAN R inhibitor because of mildly elevated potassium -Hyperlipidemia -Type 2 diabetes mellitus patient will be resumed on home regimen and the patient blood sugars appears to be uncontrolled at home will titrate the insulin depending on his blood sugars here. 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
[2017-08-16] MEDS ORDERED: VERAPAMIL HCL 180 MG PO SCH (18:30)
[2017-08-16] MEDS ORDERED: RIVAROXABAN 15 MG TAB PO SCH (21:00)
[2017-08-16 21:11] LABS: Creatine Kinase MB 3.5 ng/mL (0.0-2.4); Troponin I 0.083 ng/mL (0.000-0.034)
[2017-08-16] MEDS: GABAPENTIN 300 MG CAP PO SCH (22:54)
[2017-08-17] MEDS: METOPROLOL TARTRATE 50 MG TAB PO SCH ×2 (00:14→07:58)
[2017-08-17] MEDS ORDERED: DILTIAZEM 50 MG in SODIUM CHLORIDE 0.9% 40 ML IV ONE (01:00)
[2017-08-17 01:36] LABS: Creatine Kinase MB 3.8 ng/mL (0.0-2.4); Troponin I 0.081 ng/mL (0.000-0.034)
[2017-08-17 02:40] LABS: Glucose,Whole Blood 97 mg/dL (75-99)
[2017-08-17 03:46] VITALS: RESP 18
[2017-08-17 06:08] LABS: Glucose,Whole Blood 92 mg/dL (75-99)
[2017-08-17 06:48] LABS: HCT 42.5 % (39.0-53.0); HGB 14.7 gm/dL (13.0-17.5); MCHC 34.5 g/dL (31.0-37.0); MCV 86.9 fL (80.0-100.0); Mean Platelet Volume 10.2; Platelet Count 194 k/uL (150-450); RBC 4.89 m/uL (4.30-5.90); RDW 13.1 % (11.5-15.5); WBC 10.4 k/uL (3.8-10.6)
[2017-08-17 06:59] LABS: Potassium 4.4 mmol/L (3.5-5.1)
[2017-08-17] MEDS: SODIUM CHLORIDE 0.9% 1,000 ML IV SCH ×2 (07:03→07:58)
[2017-08-17] MEDS: INSULIN ASPART 100 UNIT/ML 1 ML 10 ML VIAL SQ SCH ×2 (07:47→12:21)
[2017-08-17] MEDS ORDERED: ASPIRIN 325 MG TAB PO SCH (09:00)
[2017-08-17] MEDS ORDERED: CALCITRIOL 0.25 MCG CAP PO SCH (09:00)
[2017-08-17] MEDS ORDERED: DILTIAZEM ORAL 30 MG TAB PO SCH (09:00)
[2017-08-17] MEDS ORDERED: NON-FORMULARY DRUG (Enalapril 5 MG) PO SCH (09:00)
[2017-08-17] MEDS ORDERED: TURMERIC ROOT EXTRACT 1000 MG PO SCH (09:00)
--- NOTE | 2017-08-17 10:26 | P.NPCON ---
History of Present Illness - Reason for Consult acute renal failure, chronic renal failure - History of Present Illness Reason for consultation: Acute kidney injury on chronic kidney disease History of present illness: Patient is a 67-year-old male seen in renal consultation for acute kidney injury on chronic kidney disease. Patient has chronic kidney disease stage IIIB /4 with baseline creatinine in the range of 2-2.3. Etiology is diabetic kidney disease and nephrosclerosis. Patient has history of atrial fibrillation and underwent ablation little over a week ago. Since then he's been having feelings of racing heart along with shortness of breath. Patient states he is having gait imbalance and is afraid he will fall and passed out. When he presented to the hospital he was noted to be in atrial flutter and is currently maintained on Cardizem drip. He is also receiving normal saline at 100 mL an hour. Creatinine was 2.48 on admission and is 2.26 today. He denies use of NSAIDs. Denies vomiting or diarrhea. Admits to good urine output. No hematuria or dysuria. His heart rate is currently controlled. He wants to eat. Vital signs are stable. General: The patient appeared well nourished and normally developed. HEENT: Head exam is unremarkable. Neck is without jugular venous distension. LUNGS: Lungs are clear to auscultation and percussion. Breath sounds decreased. HEART: Rate and Rhythm are regular. First and second heart sounds normal. No murmurs, rubs or gallops. ABDOMEN: Abdominal exam reveals normal bowel sounds. Non-tender and non- distended. No evidence of peritonitis. EXTREMITITES: No clubbing, cyanosis, or edema. Past Medical History Past Medical History: Atrial Fibrillation, Diabetes Mellitus, GERD/Reflux, Musculoskeletal Disorder, Osteoarthritis (OA), Renal Disease, Sleep Apnea/CPAP/ BIPAP, Thyroid Disorder Additional Past Medical History / Comment(s): UNABLE TO USE CPAP. HYPOTHYROID, NOT TAKING RX. CHRONIC RENAL DISEASE STAGE 3, SEE H&P PER ARNAUD , HEPATITIS B AT AGE 22 History of Any Multi-Drug Resistant Organisms: None Reported Past Surgical History: Cholecystectomy, Heart Catheterization Additional Past Surgical History / Comment(s): LOOP RECORDER -12/2016 cardiac ablation Past Anesthesia/Blood Transfusion Reactions: No Reported Reaction Past Psychological History: Anxiety, Depression Additional Psychological History / Comment(s): TAKES RX, DOESN'T WANT TO LIST RX INFO Smoking Status: Never smoker Past Alcohol Use History: Rare Additional Past Alcohol Use History / Comment(s): DRINKS EVERY 6 MONTHS Past Drug Use History: Marijuana Additional Drug Use History / Comment(s): 2 WEEKS AGO - Past Family History Father Family Medical History: Cancer Medications and Allergies Home Medications Medication Instructions Recorded Confirmed Type Calcitriol [Rocaltrol] 0.25 mcg PO DAILY 12/28/16 08/16/17 History Enalapril [Vasotec] 5 mg PO DAILY 12/28/16 08/16/17 History Ergocalciferol [Vitamin D2 50,000 unit PO Q7D 12/28/16 08/16/17 History (DRISDOL)] Ezetimibe [Zetia] 10 mg PO DAILY PRN 12/28/16 08/16/17 History Fenofibrate 54 mg PO DAILY@1200 12/28/16 08/16/17 History Gabapentin [Neurontin] 300 mg PO BID 12/28/16 08/16/17 History Insulin Aspart [NovoLOG] 25 units SQ AC-TID 12/28/16 08/16/17 History Insulin Detemir [Levemir] See Protocol SQ BID 12/28/16 08/16/17 History Metoprolol Tartrate [Lopressor] 50 mg PO BID 12/28/16 08/16/17 History Rivaroxaban [Xarelto] 15 mg PO HS 12/28/16 08/16/17 History Turmeric Root Extract [Turmeric] 1,000 mg PO DAILY 12/28/16 08/16/17 History Verapamil HCl [Verapamil ER] 180 mg PO PC-SUPPER 12/28/16 08/16/17 History ALPRAZolam [Xanax] 0.5 mg PO BID PRN 08/03/17 08/16/17 History Allergies Allergy/AdvReac Type Severity Reaction Status Date / Time No Known Allergies Allergy Verified 08/16/17 13:26 Physical Exam Vitals: Vital Signs Temp Pulse Pulse Resp BP BP Pulse Ox 08/17/17 08:00 97.5 F L 90 18 132/66 97 08/17/17 04:00 97.2 F L 79 16 121/68 97 08/17/17 03:23 97.6 F 76 18 117/57 97 08/17/17 02:09 98.1 F 102 H 16 104/56 98 08/17/17 01:00 119 H 18 98 08/17/17 00:59 145 H 18 156/64 98 08/17/17 00:19 121 H 18 102/77 95 08/16/17 23:51 115 H 18 104/70 97 08/16/17 22:56 96 18 104/66 97 08/16/17 22:35 75 18 122/70 96 08/16/17 20:55 70 18 110/71 96 08/16/17 20:52 70 18 118/75 98 08/16/17 19:25 92 18 100/58 97 08/16/17 19:06 98.6 F 138 H 18 113/67 98 08/16/17 16:16 132 H 18 128/86 99 08/16/17 15:21 132 H 18 124/86 97 08/16/17 14:23 97.2 F L 137 H 20 134/92 97 08/16/17 13:30 140 H 08/16/17 13:28 142 H 20 138/84 97 08/16/17 12:33 97.3 F L 141 H 18 142/90 98 Intake and Output 08/16/17 08/17/17 08/17/17 22:59 06:59 14:59 Other: Voiding Method Urinal Weight 125.191 kg 125.8 kg Results - Lab Results Most recent lab results Calcium 9.0 mg/dL (8.4-10.2) 08/17/17 06:22 Magnesium 1.2 mg/dL (1.6-2.3) L 08/16/17 12:53 08/17/17 06:22 08/17/17 06:22 Assessment and Plan Plan: Assessment: 1. Mild nonoliguric acute kidney injury mostly prerenal improving with IV hydration. Creatinine 2.4-10 admission and down to 2.26 today. 2. Chronic kidney disease stage IIIB/4 secondary to nephrosclerosis and diabetic kidney disease. Baseline creatinine in the range of 2-2.3. 3. History of atrial fibrillation status post ablation earlier this month. 4. Atrial flutter maintain on Cardizem drip. Cardiology following. 5. Metabolic acidosis secondary to IV fluids and chronic kidney disease. 6. Chronic kidney disease mineral bone disease maintained on calcitriol. Plan: I will decrease the rate of normal saline to 50 mL an hour. Avoid nephrotoxic agents and hypotensive episodes. Add oral sodium bicarbonate 650 mg twice daily. Repeat electrolytes in the morning. Thank you for the consultation. I will continue to follow the patient with you during his hospital stay.
[2017-08-17] MEDS ORDERED: SODIUM BICARBONATE TAB 650 MG TAB PO SCH (10:30)
[2017-08-17] MEDS ORDERED: VERAPAMIL SR 180 MG TABLET.ER PO SCH (10:45)
[2017-08-17 11:56] VITALS: BMI 38.7
[2017-08-17] MEDS ORDERED: ERGOCALCIFEROL 50,000 UNIT CAP PO SCH (12:00)
[2017-08-17] MEDS ORDERED: FENOFIBRATE 54 MG TAB PO SCH (12:00)
[2017-08-17] MEDS: GABAPENTIN 300 MG CAP PO SCH (12:24)
[2017-08-17 12:42] VITALS: BP 124/70; PULSE 72; TEMP 97.6
[2017-08-17] MEDS ORDERED: MAGNESIUM SULFATE-D5W PMX 1 GM in DEXTROSE/WATER 1 100ML.BAG IVPB ONE (14:00)
--- NOTE | 2017-08-17 15:33 | P.PN ---
Subjective Progress Note Date: 08/17/17 This is a 67-year-old gentleman with history of hypertension, diabetes and hypercholesterolemia and also chronic renal failure and had an ablation done by Dr. Boggs recently for paroxysmal atrial fibrillation. Patient came today to the emergency room with complaints of palpitations and shortness of breath. Patient is found to be in atrial flutter with 2 to one conduction. Denied any chest pain. On going to start him on IV Cardizem 10 mg bolus followed by 10 mg drip. We'll continue with beta blockers. If necessary will start him on amiodarone. If patient doesn't convert to sinus rhythm, we'll may do a cardioversion tomorrow. 08/17/2017 Patient seen and examined this morning, continues to be in atrial flutter with a heart rate in the 70s. Echocardiogram with Doppler study remains pending. Patient was quite adamant that he breakfast this morning, he did not want to be nothing by mouth for a cardioversion, we then gave him 2 options, either proceeding with a cardioversion today and then having some daily following that or we would increase his dose of verapamil, if his heart rate remained stable he could be discharged home and follow-up as an outpatient. Patient opted to not have the cardioversion today. We increased his dose of verapamil to 360 mg daily, discontinue the Cardizem drip, heart rate at this point is remaining stable. Objective - Vital Signs Vital signs: Vital Signs Temp 97.6 F 08/17/17 12:00 Pulse 72 08/17/17 12:00 Resp 18 08/17/17 12:00 BP 124/70 08/17/17 12:00 Pulse Ox 96 08/17/17 12:00 Intake & Output 08/16/17 08/17/17 08/17/17 18:59 06:59 18:59 Output Total 700 Balance -700 Weight 125.191 kg 125.8 kg 125.8 kg Output: Urine 700 Other: Voiding Method Urinal - Exam PHYSICAL EXAMINATION: HEENT: Head is atraumatic, normocephalic. Pupils equal, round. Neck is supple. There is no elevated jugular venous pressure. HEART EXAMINATION: Heart S1 and S2 irregularly irregular CHEST EXAMINATION: Lungs are clear to auscultation and precussion. No chest wall tenderness is noted on palpation or with deep breathing. ABDOMEN: Soft, nontender. Bowel sounds are heard. No organomegaly noted. EXTREMITIES: 2+ peripheral pulses with no evidence of peripheral edema and no calf tenderness noted. NEUROLOGIC patient is awake, alert and oriented -3. . - Labs CBC & Chem 7: 08/17/17 06:22 08/17/17 06:22 Labs: Abnormal Lab Results - Last 24 Hours (Table) 08/16/17 08/17/17 08/17/17 Range/Units 20:10 00:33 06:22 Chloride 108 H (98-107) mmol/L Carbon Dioxide 18 L (22-30) mmol/L BUN 39 H (9-20) mg/dL Creatinine 2.26 H (0.66-1.25) mg/dL CK-MB (CK-2) 3.5 H* 3.8 H* (0.0-2.4) ng/mL Troponin I 0.083 H* 0.081 H* (0.000-0.034) ng/mL LDL Cholesterol, Calc 110 H (0-99) mg/dL HDL Cholesterol 24 L (40-60) mg/dL Assessment and Plan Plan: Assessment and plan #1 atrial flutter, typical. #2 paroxysmal atrial fibrillation status post prior ablation #3 hypertension #4 hyperlipidemia Plan Discontinue IV Cardizem drip. Increase verapamil to 360 mg daily. Patient to be able to be discharged home and follow-up in the office post discharge. If he has recurrence of rapid rate with his atrial flutter he was instructed to come back to the hospital for cardioversion. DNP note has been reviewed, I agree with a documented findings and plan of care. Patient was seen and examined.
--- NOTE | 2017-08-17 15:45 | P.DS ---
Providers Date of admission: 08/16/17 15:12 Attending physician: Donnie Wan Consults: 08/16/17 15:12 Consult Physician Stat Consulting Provider: Josefa Hernandez Consult Reason/Comments: Failure renal Do you want consulting provider notified?: Yes Consult Physician Urgent Consulting Provider: Mars Sharif Consult Reason/Comments: Elevated troponin, tachyarrhythmia Do you want consulting provider notified?: Yes Primary care physician: [facility] Course: 67-year-old the gentleman with known history of atrial fibrillation underwent dilation 8 days ago came back because of palpitations patient is found to be in sinus tachycardia still remains in atrial flutter patient was started back on verapamil and metoprolol patient was given IV metoprolol and cardiology valid the patient today appears like they're starting him on Cardizem and patient is already on anticoagulation with Xarelto. Patient denied any fever chills cough runny nose. Patient potassium is 5.1 because of which I'm holding off on JUAN R inhibitor at this point of time patient does have diabetic nephropathy stage IV chronic kidney disease creatinine is at his baseline. Patient denied any chest pain. 08/17/2017 Patient's IV Cardizem is being discontinued and patient's verapamil dose is being increased and the cardiology cleared him for discharge. Patient has a lot of cushions which I tried to answer. Patient is on JUAN R inhibitor which was discontinued because of high normal potassium. Since patient is on verapamil which has nephro protective property in diabetics I believe he will not need JUAN R inhibitor. Since we're increasing verapamil is also concern of blood pressure going down because of which JUAN R inhibitor was discontinued. PHYSICAL EXAMINATION: GENERAL: The patient is alert and oriented x3, not in any acute distress. Well developed, well nourished. HEENT: Pupils are round and equally reacting to light. EOMI. No scleral icterus. No conjunctival pallor. Normocephalic, atraumatic. No pharyngeal erythema. No thyromegaly. CARDIOVASCULAR: S1 and S2 present. No murmurs, rubs, or gallops. PULMONARY: Chest is clear to auscultation, no wheezing or crackles. ABDOMEN: Soft, nontender, nondistended, normoactive bowel sounds. No palpable organomegaly. MUSCULOSKELETAL: No joint swelling or deformity. EXTREMITIES: No cyanosis, clubbing, or pedal edema. NEUROLOGICAL: Gross neurological examination did not reveal any focal deficits. SKIN: No rashes. Assessment and Plan Plan: -Atrial flutter/fibrillation: presently rate controlled on anticoagulation increase the dose of her abnormal -Hypertension hold off JUAN R inhibitor because of mildly elevated potassium -Hyperlipidemia -Type 2 diabetes mellitus patient will be resumed on home regimen in his blood sugars are well controlled here -Chronic kidney disease stage IV secondary to diabetic nephropathy -Gastroesophageal reflux disease -Hypothyroidism patient has elevated TSH will obtain T4 -Anxiety and depression patient will be resumed on home medications Patient Condition at Discharge: Stable Plan - Discharge Summary New Discharge Prescriptions: Continue Ezetimibe [Zetia] 10 mg PO DAILY PRN PRN Reason: DEPENDS ON DIET Calcitriol [Rocaltrol] 0.25 mcg PO DAILY Insulin Aspart [NovoLOG] 25 units SQ AC-TID Insulin Detemir [Levemir] See Protocol SQ BID Rivaroxaban [Xarelto] 15 mg PO HS Fenofibrate 54 mg PO DAILY@1200 Metoprolol Tartrate [Lopressor] 50 mg PO BID Gabapentin [Neurontin] 300 mg PO BID Turmeric Root Extract [Turmeric] 1,000 mg PO DAILY Ergocalciferol [Vitamin D2 (DRISDOL)] 50,000 unit PO Q7D ALPRAZolam [Xanax] 0.5 mg PO BID PRN PRN Reason: ANXIETY AND RAPID HEART BEAT Changed Verapamil HCl [Verapamil ER] 360 mg PO PC-SUPPER #30 cap24h.pel Discontinued Enalapril [Vasotec] 5 mg PO DAILY Discharge Medication List Calcitriol [Rocaltrol] 0.25 mcg PO DAILY 12/28/16 [History] Ergocalciferol [Vitamin D2 (DRISDOL)] 50,000 unit PO Q7D 12/28/16 [History] Ezetimibe [Zetia] 10 mg PO DAILY PRN 12/28/16 [History] Fenofibrate 54 mg PO DAILY@1200 12/28/16 [History] Gabapentin [Neurontin] 300 mg PO BID 12/28/16 [History] Insulin Aspart [NovoLOG] 25 units SQ AC-TID 12/28/16 [History] Insulin Detemir [Levemir] See Protocol SQ BID 12/28/16 [History] Metoprolol Tartrate [Lopressor] 50 mg PO BID 12/28/16 [History] Rivaroxaban [Xarelto] 15 mg PO HS 12/28/16 [History] Turmeric Root Extract [Turmeric] 1,000 mg PO DAILY 12/28/16 [History] ALPRAZolam [Xanax] 0.5 mg PO BID PRN 08/03/17 [History] Verapamil HCl [Verapamil ER] 360 mg PO PC-SUPPER #30 cap24h.pel 08/17/17 [Rx] Follow up Appointment(s)/Referral(s): Sebastián Boggs MD [STAFF PHYSICIAN] - 08/30/17 2:45 pm (Previously scheduled appointment) Mira Pederson [facility] [REFERRING] - 08/25/17 10:45 am () Patient Instructions/Handouts: Atrial Flutter (DC), Safe Use of Anticoagulants (DC) Discharge Disposition: HOME SELF-CARE
== END 2017-08-17 14:23 | disposition home or self-care (01) | DRG 309 ==
LOC: EC 12:31 → 6SEL 15:12
PROVIDERS: ADMIT Hospitalist; ATTEND Hospitalist
DX: I48.92 Unspecified atrial flutter (principal); E87.2 Acidosis; N17.9 Acute kidney failure, unspecified; N18.4 Chronic kidney disease, stage 4 (severe); Z79.01 Long term (current) use of anticoagulants; E03.9 Hypothyroidism, unspecified; E11.21 Type 2 diabetes mellitus with diabetic nephropathy; E11.22 Type 2 diabetes mellitus with diabetic chronic kidney disease; E78.00 Pure hypercholesterolemia, unspecified; E83.42 Hypomagnesemia; F32.9 Major depressive disorder, single episode, unspecified; F41.9 Anxiety disorder, unspecified; G47.30 Sleep apnea, unspecified; I12.9 Hypertensive chronic kidney disease with stage 1 through stage 4 chronic kidney disease, or unspecified chronic kidney disease; I48.0 Paroxysmal atrial fibrillation; K21.9 Gastro-esophageal reflux disease without esophagitis; Z79.4 Long term (current) use of insulin; Z79.899 Other long term (current) drug therapy; Z86.19 Personal history of other infectious and parasitic diseases; R74.8 Abnormal levels of other serum enzymes; R26.9 Unspecified abnormalities of gait and mobility
CPT/HCPCS: 36415; 71045; 80048; 80053; 80061; 82550; 82553; 83735; 84439; 84443; 84484; 85025; 85027; 85610; 85730; 93005; 96365; 96366; 96368; 96375; 96376; 99291